=== PATIENT | male | born 1970 | race Caucasian/White ===

== ENCOUNTER 2018-05-21 04:22 | Emergency (ER) | payer OTHER ==
--- NOTE | 2018-05-21 04:39 | ED ---
HPI Chest Pain - HPI Summary HPI Summary: This patient is a 47 year old M brought in by ambulance to [facility] with a chief complaint of central chest pain radiating up through neck that began 2 days ago. The patient rates the pain 7/10 in severity. Symptoms aggravated by deep breaths. Symptoms alleviated by nothing. - History of Current Complaint Chief Complaint: EDChestPainROMI Time Seen by Provider: 05/21/18 04:27 Hx Obtained From: Patient Onset/Duration: Started Days Ago, Atraumatic, Still Present Timing: Constant Initial Severity: Moderate Current Severity: Moderate Pain Intensity: 7 Pain Scale Used: 0-10 Numeric Chest Pain Location: Mid Sternal Chest Pain Radiates: Yes Chest Pain Radiates To:: Neck Aggravating Factor(s): Deep Breaths Alleviating Factor(s): Nothing - Allergy/Home Medications Allergies/Adverse Reactions: Allergies Allergy/AdvReac Type Severity Reaction Status Date / Time Penicillins Allergy Anaphylatic Verified 05/21/18 04:30 Shock Chlorythromycin Allergy Anaphylatic Uncoded 05/21/18 04:30 Shock Home Medications: Home Medications Cymbalta CAP* 30 mg PO DAILY 05/21/18 [History Confirmed 05/21/18] Duloxetine HCl 20 mg PO DAILY 05/21/18 [History Confirmed 05/21/18] Folic Acid 1 mg PO DAILY 05/21/18 [History Confirmed 05/21/18] Insulin Aspart 1 - 8 units .ROUTE TID 05/21/18 [History Confirmed 05/21/18] Lantus(*) 52 units .ROUTE DAILY 05/21/18 [History Confirmed 05/21/18] Protonix 40 mg PO DAILY 05/21/18 [History Confirmed 05/21/18] Seroquel Xr 200 TAB* 200 mg PO DAILY 05/21/18 [History Confirmed 05/21/18] Sertraline* 50 mg PO DAILY 05/21/18 [History Confirmed 05/21/18] Thiamine TAB* 100 mg PO DAILY 05/21/18 [History Confirmed 05/21/18] Zofran 4 MG Tab* 4 mg PO DAILY PRN 05/21/18 [History Confirmed 05/21/18] metFORMIN* 1,000 mg PO DAILY 05/21/18 [History Confirmed 05/21/18] traZODone TAB* [Desyrel TAB*] 100 mg PO DAILY 05/21/18 [History Confirmed ] PMH/Surg Hx/FS Hx/Imm Hx Previously Healthy: No Endocrine/Hematology History: Reports: Hx Diabetes Cardiovascular History: Reports: Hx Congestive Heart Failure, Other Cardiovascular Problems/Disorders - Low ejection fraction GI History: Reports: Hx Gastroesophageal Reflux Disease Opthamlomology History: Denies: Hx Legally Blind EENT History: Denies: Hx Deafness - Cancer History Cancer Type, Location and Year: Renal Cell Carcinoma 2014 Infectious Disease History: No Infectious Disease History: Denies: Traveled Outside the [place] in Last 30 Days - Family History Known Family History: Positive: Cardiac Disease - Social History Alcohol Use: Rare Hx Substance Use: No Substance Use Type: Reports: None Hx Tobacco Use: Yes Smoking Status (MU): Former Smoker Review of Systems Negative: Fever Positive: Chest Pain All Other Systems Reviewed And Are Negative: Yes Physical Exam - Summary Physical Exam Summary: VITAL SIGNS: Reviewed. GENERAL: Patient is a well-developed and morbidly obese male who is lying comfortable in the stretcher. Patient is not in any acute respiratory distress. HEAD AND FACE: No signs of trauma. No ecchymosis, hematomas or skull depressions. No sinus tenderness. EYES: PERRLA, EOMI x 2, No injected conjunctiva, no nystagmus. EARS: Hearing grossly intact. Ear canals and tympanic membranes are within normal limits. MOUTH: Oropharynx within normal limits. NECK: Supple, trachea is midline, no adenopathy, no JVD, no carotid bruit, no c- spine tenderness, neck with full ROM. CHEST: Symmetric, no tenderness at palpation LUNGS: Decreased breath sounds bilaterally. No wheezing or crackles. CVS: Tachycardia, S1 and S2 present, no murmurs or gallops appreciated. ABDOMEN: Soft, non-tender. No signs of distention. No rebound no guarding, and no masses palpated. Bowel sounds are normal. EXTREMITIES: FROM in all major joints, no edema, no cyanosis or clubbing. NEURO: Alert and oriented x 3. No acute neurological deficits. Speech is normal and follows commands. SKIN: Dry and warm Triage Information Reviewed: Yes Vital Signs On Initial Exam: Initial Vitals Temp Pulse Resp BP Pulse Ox 98.6 F 108 18 88/75 98 05/21/18 04:26 05/21/18 04:26 05/21/18 04:26 05/21/18 04:26 05/21/18 04:26 Vital Signs Reviewed: Yes Diagnostics - Vital Signs Vital Signs Temp Pulse Resp BP Pulse Ox 05/21/18 04:26 98.6 F 108 18 88/75 98 - Laboratory Result Diagrams: 05/21/18 05:10 05/21/18 05:10 Lab Statement: Any lab studies that have been ordered have been reviewed, and results considered in the medical decision making process. - Radiology Chest XR Radiology Interpretation Completed By: ED Physician Summary of Radiographic Findings: CXR reveals, per ED physician, no acute process. - EKG 0423 Cardiac Rate: NL EKG Rhythm: Sinus Rhythm - 109 BPM Summary of EKG Findings: An EKG taken at 0423 reveals normal sinus rhythm at 109 BPM with low voltage and left axis deviation. Chest Pain Course/Dx - Course Course Of Treatment: This patient is a 47 year old M brought in by ambulance to [facility] with a chief complaint of central chest pain radiating up through neck that began 2 days ago. Physical Exam Findings: Morbidly obese. Tachycardic. Decreased breath sounds bilaterally. An EKG taken at 0423 reveals normal sinus rhythm at 109 BPM with low voltage and left axis deviation. CXR reveals, per ED physician, no acute process. Bloodwork obtained. In the ED course the patient was given aspirin, morphine, fluids, and Zofran. Consult with Dr. Rico ( hospitalist) at 0545. She agrees to admit the patient for further evaluation. The patient is agreeable with this plan. - Diagnoses Provider Diagnoses: Chest pain Discharge - Sign-Out/Discharge Documenting (check all that apply): Patient Departure - Admit to [facility] - Discharge Plan Condition: Stable Disposition: ADMITTED TO [facility] Referrals: No Primary Care Phys,NOPCP [Primary Care Provider] - - Billing Disposition and Condition Condition: STABLE Disposition: Admitted to [facility] - Attestation Statements Document Initiated by Tanikaibnevaeh: Yes Documenting Scribe: Adriana Quiroga Provider For Whom Eladia is Documenting (Include Credential): Dr. Ham Holguin MD Scribe Attestation: Adriana Reed scribed for Dr. Ham Holguin MD on 05/21/18 at 0558. Scribe Documentation Reviewed: Yes Provider Attestation: The documentation as recorded by the Sheryl blountily Day accurately reflects the service I personally performed and the decisions made by me, Dr. Ham Holguin MD Status of Scribnevaeh Document: Viewed
[2018-05-21] MEDS ORDERED: Morphine VIAL* 4 MG/ML VIAL (1 ml vial) IV ONE ×2 (04:40→06:15)
[2018-05-21] MEDS ORDERED: NS 0.9% 500 ML* 500 ML IV ONE ×2 (04:40→05:45)
[2018-05-21] MEDS ORDERED: Aspirin 81 mg CHEW TAB* 81 MG TAB.CHEW PO ONE (04:40)
[2018-05-21] MEDS ORDERED: Ondansetron INJ* 2 MG/ML VIAL IV ONE (04:41)
[2018-05-21 05:21] LABS: ABS Basophils 0 10^3/ul (0-0.2); ABS Eosinophils 0.1 10^3/ul (0-0.6); ABS Monocytes 0.9 10^3/ul (0-0.8); ABS Neutrophils 6.3 10^3/ul (1.5-7.7); ABS Nucleated RBC 0 10^3/ul; Eosinophil % 1.8 %; Hematocrit 41 % (42-52); Hemoglobin 13.4 g/dl (14.0-18.0); Mean Corpuscular HGB Conc 33 g/dl (31-36); Mean Corpuscular Hemoglobin 28 pg (27-31); Mean Corpuscular Volume 84 fL (80-94); Mean Platelet Volume 7.2 fL (7.4-10.4); Nucleated Red Blood Cells % 0; Platelet Count 244 10^3/ul (150-450); Red Blood Count 4.85 10^6/ul (4.00-5.40); Red Cell Distribution Width 15 % (10.5-15); White Blood Count 8.4 10^3/ul (3.5-10.8)
[2018-05-21 05:35] LABS: Activated Partial Thrombo Time 19.6 seconds (26.0-36.3); INR 0.93 (0.77-1.02)
[2018-05-21 05:39] LABS: Albumin 3.5 g/dL (3.2-5.2); Albumin/Globulin Ratio 1.1 (1-3); BUN/Creatinine Ratio 7.5 (8-20); Calcium 9.1 mg/dL (8.6-10.3); EGFR Non-African American 51.1 (>60); Globulin 3.2 g/dL (2-4); Magnesium 1.8 mg/dL (1.9-2.7); Potassium 3.6 mmol/L (3.5-5.0); Total Protein 6.7 g/dL (6.4-8.9)
[2018-05-21] MEDS ORDERED: Al Hydrox/Mg Hydrox/Simet LIQ* 30 ML UDC PO PRN (06:05)
--- NOTE | 2018-05-21 07:14 | PN ---
Subjective Date of Service: 05/21/18 Interval History: Addendum to H/P #1 05/21/18 47 yo M with PMH ETOH use d/o and dependence, PSA, currently in inpatient rehabilitation facility ([facility], brought here by ambulance from there), depression and anxiety, hx of NICM with distant depressed EF though currently last echo normal EF with trivial tricuspid pathology (04/2018), hx of peridcarditis dx by outpt [employer] in Jan (cardiac w/u as below), distant hx of RCC s/p R nephrectomy c/b abdominal hernia and subsequent abdominal hernia repair surgery, PUD and GIB, CKD II who presented to the ER from [place] for chest pain as described in H/P. Records accessed from [facility] show recent cardiology consult 05/14/18 for the same and the following workup: CTA Ne05/01/18 and 2 subsequent neg CTA in 03/2018 Cath 03/2018: Insig CAD Echo 04/2018: Chronic trivial pericardial effusion NM Stress in 03/2018: Old ischemia, triggered cath above In the ER here at [facility], labs show Cr at baseline ESR 27, Trops neg, EKG with isolated STD in V5, compared to 05/14/18 this is new, though of unclear sig I visited with the pt, on repeat history his CP has been chronic and ongoing and not really changed since Mar 2018. He did have a trial of prednisone in Jan which he thought was mildly helpful. We discuss in the setting of such an extensive cardiac workup and no e/o active pericarditis with a low ESR and unremarkable EKG that residual inflammation may be responsible for his pain and that we could certainly trial him on low dose prednisone which he is amenable to. I called and discussed his case with Keturah, the charge nurse and [facility] and they are comfortable ([phone]) managing his sliding scale insulin. Objective Active Medications: Al Hydrox/Mg Hydrox/Simethicone (Maalox Plus*) 30 ml PO Q6H PRN PRN Reason: INDIGESTION Heparin Sodium (Porcine) (Heparin Vial(*)) 5,000 units SUBCUT Q8HR ODALIS Vital Signs - 8 hr 05/21/18 05/21/18 05/21/18 04:26 05:20 05:25 Temperature 98.6 F Pulse Rate 108 89 Respiratory 18 18 15 Rate Blood Pressure 88/75 77/63 (mmHg) O2 Sat by Pulse 98 97 Oximetry 05/21/18 05/21/18 05/21/18 05:29 05:33 05:55 Temperature Pulse Rate 88 97 80 Respiratory 12 12 12 Rate Blood Pressure 92/61 97/63 (mmHg) O2 Sat by Pulse 98 96 Oximetry 05/21/18 05/21/18 05/21/18 06:00 06:19 06:25 Temperature Pulse Rate 83 76 Respiratory 13 18 8 Rate Blood Pressure 102/70 (mmHg) O2 Sat by Pulse 98 96 Oximetry 05/21/18 06:44 Temperature 98.6 F Pulse Rate 80 Respiratory 18 Rate Blood Pressure 102/70 (mmHg) O2 Sat by Pulse 98 Oximetry Oxygen Devices in Use Now: None Eyes: No Scleral Icterus, PERRLA Ears/Nose/Mouth/Throat: - - Fair dentition Neck: NL Appearance and Movements; NL JVP Respiratory: Symmetrical Chest Expansion and Respiratory Effort Cardiovascular: NL Sounds; No Murmurs; No JVD, - - Port at R chest wall Abdominal: NL Sounds; No Tenderness; No Distention Lymphatic: No Cervical Adenopathy Extremities: No Edema Skin: No Rash or Ulcers Neurological: Alert and Oriented x 3 Result Diagrams: 05/21/18 05:10 05/21/18 05:10 EKG Data: As per HPI Assess/Plan/Problems-Billing Assessment: As per HPI this 48 yo M with above PMH who is presenting for continue atypical CP. He has had extensive cardiac workup and his troponins, ESR, and EKG do not suggest active ischemia or pericarditis. His pain may be inflammation based from a sub acute hx of pericarditis in the absence of an acute flare. His catheterization, CTA, echo, and stress test done from outside are reassuring. He is medically stable for d/c and this is discussed with [facility] and the patient - Patient Problems (1) Chest pain, atypical Current Visit: Yes Status: Chronic Code(s): R07.89 - OTHER CHEST PAIN SNOMED Code(s): 656960320 Comment: Atypical chest pain as above. He is stable for d/c on his home medications with addition of prednisone 40mg x 3 days followed by 20mg x 3 days then stop. He may stop prednisone if he does not find it helpful. He will need adjustment of his insulin likely as a repsonse to prednisone and the charge nurse is aware of this -D/C to [facility] -Outpt rx of Prednisone 40mg x 3 days, 20mg x 3 days then stop -Resume home medications
[2018-05-21 07:16] LABS: Erythrocyte Sed Rate 27 mm/Hr (0-14)
[2018-05-21] MEDS ORDERED: predniSONE TAB* 20 MG PO SCH (08:00)
--- NOTE | 2018-05-21 08:22 | ED ---
Progress - Progress Note Progress Note: After Dr Salas consulted on the patient she suggested discharging the patient. She states the patient had full cardiac workup on the 7th of this month at [facility] and there is nothing we could offer him further. The patient was not signed out to me and I was not involved in the care of this patient. Patient will be discharged. Course/Dx - Course Course Of Treatment: After Dr Salas consulted on the patient she suggested discharging the patient. She states the patient had full cardiac workup on the 7th of this month at [facility] and there is nothing we could offer him further. The patient was not signed out to me and I was not involved in the care of this patient. Patient will be discharged. - Diagnoses Provider Diagnoses: Atypical chest pain Discharge - Sign-Out/Discharge Documenting (check all that apply): Patient Departure - Discharge Plan Condition: Stable Disposition: ADMITTED TO [facility] Prescriptions: predniSONE TAB* [Deltasone 20 MG TAB*] 20 mg PO DAILY #12 tab Referrals: No Primary Care Phys,NOPCP [Primary Care Provider] - - Attestation Statements Document Initiated by Scribe: Yes Documenting Scribe: Graham Boyle Provider For Whom Scribe is Documenting (Include Credential): Jeff Chadwick MD Scribe Attestation: I, Graham Boyle , scribed for Jeff Chadwick MD on 05/21/18 at 0819. Status of Scribe Document: Ready
[2018-05-21 08:43] VITALS: BP 100/68
--- NOTE | 2018-05-21 09:18 | HP ---
HISTORY AND PHYSICAL: DATE OF ADMISSION: 05/21/18 - EMERGENCY DEPT. TIME OF ADMISSION: 6:30 a.m. PRIMARY CARE PHYSICIAN: Dr. Alberts at [facility]. CHIEF COMPLAINT: Chest pain. HISTORY OF PRESENT ILLNESS: This is a 47-year-old man who is currently in alcohol rehab at [facility] who presents to the emergency department with chest pain since Monday night. He reports the chest pain began while he was resting in bed. It is located in the middle of his chest without radiation. He says he went to [facility] Monday night where they performed blood work, but did no other test and discharged him back to [facility]. Since then, his pain has continued, but he has mostly stayed in bed. He has not noticed that the pain worsened with exertion or changed with rest. He reports that he was diagnosed with pericarditis in January 2018 and this feels just like that. He states the pain gets worse with deep inspiration and worse with lying flat and is relieved with leaning forward. It has been constant and since it was not resolving today, he requested to come to the emergency department. Pertinent medical history that he reports, though I have no records of, includes recent pericarditis last fall, congestive heart failure with an ejection fraction of 25%; for which he wore a LifeVest, COPD, renal cell carcinoma; status post nephrectomy, and type 2 diabetes. PAST MEDICAL HISTORY: 1. Type 2 diabetes, on insulin. 2. Iron deficiency anemia. 3. COPD/asthma. 4. Fifteen abdominal surgeries for incisional hernia repairs and cholecystectomy. 5. RCC, status post nephrectomy. 6. Congestive heart failure with an EF of 25%, unknown etiology. 7. Pericarditis diagnosed in January 2018, for which he was placed on colchicine and prednisone. SOCIAL HISTORY: He permanently lives in [place], but is currently at inpatient rehab at [facility]. He quit smoking 5 years ago. He has been sober since 04/30/18. His emergency contact is his , Melissa. REVIEW OF SYSTEMS: He denies cough, shortness of breath, orthopnea, fevers, weight gain, or weight loss. Remainder of the 14-point review of systems is negative, except for as in the HPI. PHYSICAL EXAMINATION GENERAL: Alert, well-appearing man, in no distress. He is breathing comfortably and is able to speak in full sentences. VITAL SIGNS: Temperature 98.6, heart rate 80, respiratory rate 18, pulse ox 98 % on room air, blood pressure 102/70. HEENT: Pupils 3 mm bilaterally and reactive to light. Oral mucosa is moist. NECK: No JVP. No cervical adenopathy. LUNGS: Clear bilaterally. CHEST: He has a port on his right chest wall. He is in a regular rate and rhythm with no murmurs or rubs. ABDOMEN: Soft, nontender, nondistended. His liver is nonpalpable. He has no CVA tenderness. EXTREMITIES: No edema. No rashes. No ulcers. NEUROLOGIC: He is oriented x3. His strength is 5/5 throughout. DIAGNOSTIC STUDIES/LAB DATA: Labs: Sodium 135, potassium 3.6, chloride 101, creatinine 1.47, glucose 150, lactic acid 1.3, magnesium 1.8. Troponin 0.00. INR 0.93. D dimer is less than 200. White blood cell 8.4, hemoglobin 13.4, platelets 244. Chest x-ray: No infiltrates or effusion. Heart has a normal size, no vascular congestion. EKG: Sinus tachycardia with left axis deviation, isolated ST depressions in V5. No other ST or T-wave changes. ASSESSMENT AND PLAN: This is a 47-year-old man with reported extensive past medical history who presents to the emergency department with chest pain for 3 days. 1. Chest pain. He reports this is similar to pericarditis in the past. I have added on an ESR, which is pending. His initial troponin is negative and his EKG does not suggest ischemia nor pericarditis. He reports he has been to multiple hospitals over the past few months for similar complaints. It will be helpful if we can get records from [facility], and [place] where he reports he has had admissions and we will attempt to do so today. In the meantime, I will trend his troponins and monitor him on telemetry and await an ESR. At that point, a stress echo may be warranted pending the rest of the investigation. 2. Chronic kidney disease, likely related to nephrectomy. I have no baseline creatinine to compare this to, but he appears euvolemic on my exam. 3. Type 2 diabetes. He needs a medication reconciliation today. 4. Iron deficiency anemia. His hemoglobin is stable at 13.4 today. 5. DVT prophylaxis. Subcutaneous heparin. 6. Diet. N.p.o. for possible stress test. [id number]/[facility] #: [id number] ERVIN
--- NOTE | 2018-05-21 10:50 | PN ---
Progress Note - Progress Note Date of Service: 05/21/18 Note: Final xray read per radiology shows COPD. No change in treatment noted.
[2018-05-21] MEDS ORDERED: Heparin VIAL(*) 5000 UNITS/ML VIAL (FIVE THOUSAND) SUBCUT SCH (14:00)
== END 2018-05-21 08:45 | disposition short-term general hospital (02) ==
LOC: ED 04:22 → MEDTELE 06:00 → UNDOADMOB 06:00 → ED 08:45
DX: R07.89 Other chest pain (principal); J44.9 Chronic obstructive pulmonary disease, unspecified; E11.9 Type 2 diabetes mellitus without complications; Z79.84 Long term (current) use of oral hypoglycemic drugs; Z79.4 Long term (current) use of insulin; K21.9 Gastro-esophageal reflux disease without esophagitis; Z88.1 Allergy status to other antibiotic agents; Z88.0 Allergy status to penicillin; Z82.49 Family history of ischemic heart disease and other diseases of the circulatory system; Z87.891 Personal history of nicotine dependence; R00.0 Tachycardia, unspecified
CPT/HCPCS: 36415; 71045; 80053; 83605; 83735; 83880; 84484; 85025; 85379; 85610; 85652; 85730; 93005; 96361; 96374; 96375; 99285; A9270-GY; J1642; J2270; J2405; J7512

== ENCOUNTER 2018-06-19 02:30 | Emergency (ER) | payer OTHER ==
[2018-06-19] MEDS ORDERED: Metoclopramide IV* 5 MG/ML 2 ML VIAL IV SLOW PU ONE (03:25)
[2018-06-19] MEDS ORDERED: NS 0.9% 1000 ML** 1,000 ML IV ONE (03:25)
--- NOTE | 2018-06-19 03:25 | ED ---
GI/ HPI - HPI Summary HPI Summary: Patient is a 47 y/o M presenting to ED with complaints of hematemesis, abdominal pain. He states that abdominal pain onset at 1000 yesterday, vomited 2100 yesterday. Per triage, "Patient brought by ambulance from [facility]. Patient reports thowing up about a cup of blood at the center". He denies diarrhea, fever, reports no change in bowel movements, claims last bowel movement was productive of brown stool. PMHx of GI bleed from stomach and colon. He states that he had polyps in colon, ulcers in stomach. Hx of alcoholism, he denies Hx of liver problems due to alc. He notes that he drank for 20 years, states he quit two months ago. PMHx of pericarditis and diabetes. On triage, pain is rated 8/10, nothing is noted to aggravate/alleviate Sx. Home medications and allergies are reviewed. - History of Current Complaint Chief Complaint: EDAbdPain Time Seen by Provider: 06/19/18 03:15 Stated Complaint: ABD PAIN Hx Obtained From: Patient Onset/Duration: Started Hours Ago - He states that abdominal pain onset at 1000 yesterday, vomited 2100 yesterday., Still Present Timing: Constant, Lasting Hours - He states that abdominal pain onset at 1000 yesterday, vomited 2100 yesterday. Current Severity: Severe - 8/10 Pain Intensity: 8 Associated Signs and Symptoms: Positive: Hematemesis, Abdominal Pain. Negative : Diarrhea, Fever Aggravating Factor(s): Nothing Alleviating Factor(s): Nothing - Allergy/Home Medications Allergies/Adverse Reactions: Allergies Allergy/AdvReac Type Severity Reaction Status Date / Time Adhesive Tape Allergy Unknown Verified 06/19/18 05:00 [Tegaderm Dressing] Reaction Details clarithromycin Allergy Anaphylatic Verified 05/21/18 06:17 Shock NSAIDS (Non-Steroidal Allergy Unknown Verified 06/19/18 05:00 Anti-Inflamma Reaction Details Penicillins Allergy Anaphylatic Verified 05/21/18 04:30 Shock Home Medications: Home Medications Acetaminophen [APAP] 650 mg PO Q6H PRN 06/19/18 [History Confirmed 06/19/18] Atorvastatin* [Lipitor*] 20 mg PO QPM 06/19/18 [History Confirmed 06/19/18] Metoclopramide TAB* [Reglan TAB*] 5 mg PO Q6H PRN 06/19/18 [History Confirmed ] Multivitamin [Multivitamins] 1 each PO DAILY 06/19/18 [History Confirmed ] Naltrexone TAB* 50 mg PO BEDTIME 06/19/18 [History Confirmed 06/19/18] PMH/Surg Hx/FS Hx/Imm Hx Endocrine/Hematology History: Reports: Hx Diabetes Cardiovascular History: Reports: Hx Congestive Heart Failure, Other Cardiovascular Problems/Disorders - Low ejection fraction GI History: Reports: Hx Gastroesophageal Reflux Disease, Hx Gastrointestinal Bleed Sensory History: Denies: Hx Legally Blind, Hx Deafness Opthamlomology History: Denies: Hx Legally Blind - Cancer History Cancer Type, Location and Year: Renal Cell Carcinoma 2013 Infectious Disease History: No Infectious Disease History: Denies: Traveled Outside the [place] in Last 30 Days - Family History Known Family History: Positive: Cardiac Disease - Social History Alcohol Use: None Alcohol Amount: 05/17/2018 treatment Hx Substance Use: No Substance Use Type: Reports: None Hx Tobacco Use: Yes Smoking Status (MU): Former Smoker Review of Systems Negative: Fever Positive: Abdominal Pain, Vomiting - hematemesis. Negative: Diarrhea All Other Systems Reviewed And Are Negative: Yes Physical Exam - Summary Physical Exam Summary: VITAL SIGNS: Reviewed. GENERAL: Patient is a well-developed and morbidly obese male who is lying comfortable in the stretcher. Patient is not in any acute respiratory distress. HEAD AND FACE: No signs of trauma. No ecchymosis, hematomas or skull depressions. No sinus tenderness. EYES: PERRLA, EOMI x 2, No injected conjunctiva, no nystagmus. EARS: Hearing grossly intact. Ear canals and tympanic membranes are within normal limits. MOUTH: Oropharynx within normal limits. NECK: Supple, trachea is midline, no adenopathy, no JVD, no carotid bruit, no c- spine tenderness, neck with full ROM. CHEST: Symmetric, no tenderness at palpation LUNGS: Clear to auscultation bilaterally. No wheezing or crackles. CVS: Regular rate and rhythm, S1 and S2 present, no murmurs or gallops appreciated. ABDOMEN: Soft, diffuse tenderness. No signs of distention. No rebound no guarding, and no masses palpated. Bowel sounds are normal. RECTAL EXAM: Brown stool is noted, sample sent for occult blood test. EXTREMITIES: FROM in all major joints, no edema, no cyanosis or clubbing. NEURO: Alert and oriented x 3. No acute neurological deficits. Speech is normal and follows commands. SKIN: Dry and warm Triage Information Reviewed: Yes Vital Signs On Initial Exam: Initial Vitals Temp Pulse Resp BP Pulse Ox 97.8 F 82 20 103/64 98 06/19/18 02:30 06/19/18 02:30 06/19/18 02:30 06/19/18 02:30 06/19/18 02:30 Vital Signs Reviewed: Yes Diagnostics - Vital Signs Vital Signs Temp Pulse Resp BP Pulse Ox 06/19/18 02:30 97.8 F 82 20 103/64 98 - Laboratory Result Diagrams: 06/19/18 03:44 06/19/18 03:44 Lab Statement: Any lab studies that have been ordered have been reviewed, and results considered in the medical decision making process. - CT ABD/PEL CT CT Interpretation Completed By: Radiologist Summary of CT Findings: ABD/PEL CT IMPRESSION: There is a trace pericardial effusion noted. No evidence of acute. intra-abdominal pathology. THIS REPORT WAS REVIEWED BY ED PHYSICIAN. GIGU Course/Dx - Course Course Of Treatment: Patient is a 47 y/o M presenting to ED with complaints of hematemesis, abdominal pain. He states that abdominal pain onset at 1000 yesterday, vomited 2100 yesterday. Per triage, "Patient brought by ambulance from [facility]. Patient reports thowing up about a cup of blood at the center". He denies diarrhea, fever, reports no change in bowel movements, claims last bowel movement was productive of brown stool. PMHx of GI bleed from stomach and colon. He states that he had polyps in colon, ulcers in stomach. Hx of alcoholism, he denies Hx of liver problems due to alc. He notes that he drank for 20 years, states he quit two months ago. PMHx of pericarditis and diabetes. On physical exam, patient is noted to be morbidly obese, abdomen is tender diffusely, rectal exam showed brown stool, sample sent for occult blood test. During ED course, patient received fluids, protonix 80 mg IV ED ONCE, reglan 10 mg IV SLOW PU ONCE, and protonix IV bag 80 mg in 250 mls/hr IVPB Q10H ODALIS 1 mg/hr. Labs showed Hgb 12.9, Hct 39, absolute monos 0.9, creatinine 1.44, glucose 103, magnesium 1.8. UA was positive for urobilinogen. Stool occult blood was negative. ABD/PEL CT IMPRESSION: There is a trace pericardial effusion noted. No evidence of acute. intra-abdominal pathology. Patient was discharged to home and instructed to follow up with PCP. - Diagnoses Provider Diagnoses: Gastritis Discharge - Sign-Out/Discharge Documenting (check all that apply): Patient Departure - DISCHARGE Patient Received Moderate/Deep Sedation with Procedure: No - NO PROCEDURES DONE - Discharge Plan Condition: Stable Disposition: HOME Prescriptions: Metoclopramide TAB* [Reglan TAB*] 10 mg PO Q6H PRN #20 tab PRN Reason: Nausea/Vomiting Pantoprazole TAB * [Protonix TAB*] 40 mg PO DAILY #30 tab Patient Education Materials: Gastritis (ED) Referrals: [facility] [Outside] - 2 Days Additional Instructions: RETURN TO EMERGENCY DEPARTMENT FOR ANY NEW OR WORSENING SYMPTOMS. FOLLOW UP WITH PRIMARY CARE PHYSICIAN IN 1-2 DAYS. - Attestation Statements Document Initiated by Tanikaibe: Yes Documenting Scribe: CARIE SNOWDEN Provider For Whom Eladia is Documenting (Include Credential): JOSÉ MIGUEL BRADLEY MD Scribe Attestation: I, CARIE SNOWDEN , scribed for JOSÉ MIGUEL BRADLEY MD on 06/19/18 at 0639. Status of Scribe Document: Ready
[2018-06-19] MEDS ORDERED: Pantoprazole IV* 40 MG IV ONE (03:26)
[2018-06-19 03:51] LABS: ABS Basophils 0 10^3/ul (0-0.2); ABS Eosinophils 0.1 10^3/ul (0-0.6); ABS Lymphocytes 1.1 10^3/ul (1.0-4.8); ABS Monocytes 0.9 10^3/ul (0-0.8); ABS Neutrophils 5.1 10^3/ul (1.5-7.7); ABS Nucleated RBC 0 10^3/ul; Eosinophil % 1.7 %; Hematocrit 39 % (42-52); Hemoglobin 12.9 g/dl (14.0-18.0); Lymphocyte % 14.5 %; Mean Corpuscular HGB Conc 33 g/dl (31-36); Mean Corpuscular Hemoglobin 27 pg (27-31); Mean Corpuscular Volume 81 fL (80-94); Mean Platelet Volume 7.5 fL (7.4-10.4); Nucleated Red Blood Cells % 0; Platelet Count 209 10^3/ul (150-450); Red Cell Distribution Width 14 % (10.5-15); White Blood Count 7.2 10^3/ul (3.5-10.8)
[2018-06-19 04:00] LABS: Activated Partial Thrombo Time 35.8 seconds (26.0-36.3); INR 0.9 (0.77-1.02)
[2018-06-19] MEDS ORDERED: Pantoprazole* 80 mg IN NS 80 MG/250 ML BAG IVPB SCH (04:00)
[2018-06-19 04:08] LABS: Albumin 3.8 g/dL (3.2-5.2); Albumin/Globulin Ratio 1.4 (1-3); BUN/Creatinine Ratio 10.4 (8-20); C Reactive Protein 6.91 mg/L (<8.01); Calcium 9.6 mg/dL (8.6-10.3); EGFR African American 63.4 (>60); EGFR Non-African American 52.4 (>60); Globulin 2.8 g/dL (2-4); Magnesium 1.8 mg/dL (1.9-2.7); Total Bilirubin 0.7 mg/dL (0.2-1.0); Total Protein 6.6 g/dL (6.4-8.9)
[2018-06-19] MEDS ORDERED: Iodixanol* (CONTRAST) 320 MG/ML 100 ML SDV IV ONE (04:13)
[2018-06-19 05:18] LABS: Urine Appearance Clear; Urine Bilirubin Negative (Negative); Urine Blood Negative (Negative); Urine Color Yellow; Urine Glucose Negative (Negative); Urine Ketones Negative (Negative); Urine Nitrite Negative (Negative); Urine Protein Negative (Negative); Urine Specific Gravity 1.024 (1.010-1.030); Urine Urobilinogen Positive (Negative)
[2018-06-19 07:48] VITALS: BP 112/79
== END 2018-06-19 07:31 | disposition home or self-care (01) ==
LOC: ED 02:30
DX: K29.70 Gastritis, unspecified, without bleeding (principal); R10.9 Unspecified abdominal pain; K92.0 Hematemesis; E11.9 Type 2 diabetes mellitus without complications; I50.9 Heart failure, unspecified; K21.9 Gastro-esophageal reflux disease without esophagitis; Z88.0 Allergy status to penicillin; Z87.891 Personal history of nicotine dependence
CPT/HCPCS: 36415; 74177; 80053; 81003; 82150; 82272; 83690; 83735; 85025; 85610; 85730; 86140; 96361; 96374; 96375; 99284; J1642; J2765; Q9967

== ENCOUNTER 2020-03-19 16:15 | Observation (INO) ==
[2020-03-19 17:37] LABS: ABS Eosinophils 0.1 10^3/ul (0-0.6); ABS Lymphocytes 1.2 10^3/ul (1.0-4.8); ABS Monocytes 0.4 10^3/ul (0-0.8); ABS Neutrophils 5.6 10^3/ul (1.5-7.7); Eosinophil % 1.5 %; Hematocrit 38 % (42-52); Hemoglobin 12.6 g/dL (14.0-18.0); Mean Corpuscular HGB Conc 33 g/dL (31-36); Mean Corpuscular Hemoglobin 26 pg (27-31); Mean Corpuscular Volume 79 fL (80-94); Mean Platelet Volume 7.1 fL (7.4-10.4); Platelet Count 165 10^3/uL (150-450); Red Blood Count 4.83 10^6 /uL (4.18-5.48); Red Cell Distribution Width 17 % (10-15); White Blood Count 7.3 10^3/uL (3.5-10.8)
[2020-03-19 17:41] LABS: Activated Partial Thrombo Time 18.8 seconds (26.0-38.0); INR 0.93 (0.82-1.09)
[2020-03-19 17:50] LABS: ALT 61 U/L (7-52); AST 30 U/L (13-39); Albumin 3.7 g/dL (3.2-5.2); Albumin/Globulin Ratio 1.3 (1-3); Alkaline Phosphatase 115 U/L (34-104); Anion Gap 4 mmol/L (2-11); BUN/Creatinine Ratio 14.2 (8-20); Blood Urea Nitrogen 17 mg/dL (6-24); CO2 Carbon Dioxide 27 mmol/L (22-32); CRP High Sensitivity 10.74 mg/L (<2.00); Calcium 8.4 mg/dL (8.6-10.3); Chloride 104 mmol/L (101-111); EGFR African American 77.5 (>60); EGFR Non-African American 64.1 (>60); Globulin 2.8 g/dL (2-4); Glucose 197 mg/dL (70-100); Potassium 4.4 mmol/L (3.5-5.0); Sodium 135 mmol/L (135-145); Total Protein 6.5 g/dL (6.4-8.9)
[2020-03-19 19:37] LABS: Erythrocyte Sed Rate 11 mm/Hr (0-19)
[2020-03-19] MEDS ORDERED: Ondansetron 4 mg VIAL 2 MG/ML 2 ml VIAL IV PRN (20:53)
[2020-03-19] MEDS ORDERED: Dextrose 50% Syringe 50 ml 25 GM/50 ML SYRINGE IV PUSH PRN (21:08)
[2020-03-19] MEDS ORDERED: Heparin 5000 UNITS/ML 1 mL VIAL SUBCUT SCH (22:00)
[2020-03-19 22:43] LABS: % Iron Saturation 9 % (15-55); Iron 32 ug/dL (50-212); Total Iron Binding Capacity 364 mcg/dL (250-450); Transferrin 260 mg/dL (203-362); Unsaturated Iron Binding < 349 ug/dL
[2020-03-19 23:03] LABS: Ferritin 11.4 ng/mL (24-336)
[2020-03-20 02:46] LABS: Urine Appearance Clear; Urine Bilirubin Negative (Negative); Urine Blood Negative (Negative); Urine Color Yellow; Urine Glucose 2+(150 mg/dL) (Negative); Urine Ketones Negative (Negative); Urine Nitrite Negative (Negative); Urine Protein Negative (Negative); Urine Specific Gravity 1.025 (1.010-1.030); Urine Urobilinogen Negative (Negative)
[2020-03-20 06:33] LABS: C Reactive Protein 32.01 mg/L (<8.01); HDL Cholesterol 33.5 mg/dL
[2020-03-20] MEDS ORDERED: Perflutren Lipid Microsphere 3 ML VIAL ONE (08:08)
[2020-03-20] MEDS ORDERED: Insulin GLARGINE 100 un/ml 10 ml VIAL SUBCUT SCH ×2 (09:00)
[2020-03-20] MEDS: CMCS: FluvoxaMINE 50 mg TAB (NF) PO SCH (09:04)
[2020-03-20] MEDS ORDERED: Regadenoson 0.4 MG/5 ML SYRINGE ONE ×2 (11:23→14:46)
[2020-03-20] MEDS ORDERED: Aminophylline 25 MG/ML VIAL ONE (11:23)
[2020-03-20] MEDS ORDERED: Lorazepam PYXIS KEY ONE (11:25)
[2020-03-20] MEDS ORDERED: LORazepam 2 mg VIAL 1 ml ONE (11:26)
[2020-03-20] MEDS ORDERED: Al Hydrox/Mg Hydrox/Simet LIQ 30 ML UDC PO PRN (13:03)
[2020-03-20 14:42] LABS: Albumin 3.4 g/dL (3.2-5.2); Albumin/Globulin Ratio 1.3 (1-3); BUN/Creatinine Ratio 13.6 (8-20); Calcium 8.3 mg/dL (8.6-10.3); EGFR Non-African American 61.1 (>60); Globulin 2.7 g/dL (2-4); Potassium 4.3 mmol/L (3.5-5.0); Total Bilirubin 0.6 mg/dL (0.2-1.0); Total Protein 6.1 g/dL (6.4-8.9)
[2020-03-21 05:37] LABS: Hematocrit 38 % (42-52); Hemoglobin 12.3 g/dL (14.0-18.0); Mean Corpuscular HGB Conc 33 g/dL (31-36); Mean Corpuscular Hemoglobin 26 pg (27-31); Mean Corpuscular Volume 79 fL (80-94); Mean Platelet Volume 7.3 fL (7.4-10.4); Platelet Count 177 10^3/uL (150-450); Red Blood Count 4.81 10^6 /uL (4.18-5.48); Red Cell Distribution Width 16 % (10-15); White Blood Count 7.5 10^3/uL (3.5-10.8)
[2020-03-21 05:53] LABS: Calcium 6.9 mg/dL (8.6-10.3); EGFR African American 102.8 (>60); EGFR Non-African American 84.9 (>60); Magnesium 1.6 mg/dL (1.9-2.7); Potassium 3.8 mmol/L (3.5-5.0)
[2020-03-21 06:52] LABS: ABS Lymphocytes 0.6 10^3/ul (1.0-4.8); ABS Monocytes 0.6 10^3/ul (0-0.8); ABS Neutrophils 6.3 10^3/ul (1.5-7.7); Lymphocyte % 7.4 %
[2020-03-21] MEDS ORDERED: Magnesium Sulfate 2 gm BAG 2 GM/50 ML BAG IVPB ONE (08:15)
[2020-03-21] MEDS: CMCS: FluvoxaMINE 50 mg TAB (NF) PO SCH (08:54)
[2020-03-21] MEDS ORDERED: Insulin GLARGINE 100 un/ml 10 ml VIAL SUBCUT SCH (09:00)
[2020-03-21 12:57] VITALS: BP 120/75
== END 2020-03-21 14:33 ==
LOC: MEDTELE 16:15 → ED 16:15 → MEDTELE 21:53
PROVIDERS: ADMIT Student in an Organized Health Care Education/Training Program; ATTEND Internal Medicine

== ENCOUNTER 2020-04-08 13:11 | Inpatient (IN) ==
[2020-04-08] MEDS ORDERED: Pantoprazole 80 mg in NS BAG 80 MG/250 ML BAG IV ONE (13:27)
[2020-04-08] MEDS ORDERED: Ondansetron 4 mg VIAL 2 MG/ML 2 ml VIAL IV ONE (13:27)
[2020-04-08] MEDS ORDERED: NS 0.9% 1000 ml BAG 1,000 ML IV ONE (13:27)
[2020-04-08] MEDS ORDERED: Pantoprazole VIAL 40 MG VIAL IV ONE (13:29)
[2020-04-08 14:02] LABS: ABS Eosinophils 0.1 10^3/ul (0-0.6); ABS Monocytes 0.8 10^3/ul (0-0.8); ABS Neutrophils 5.9 10^3/ul (1.5-7.7); Eosinophil % 1.6 %; Hematocrit 38 % (42-52); Hemoglobin 12.3 g/dL (14.0-18.0); Lymphocyte % 13.1 %; Mean Corpuscular HGB Conc 33 g/dL (31-36); Mean Corpuscular Hemoglobin 26 pg (27-31); Mean Corpuscular Volume 79 fL (80-94); Mean Platelet Volume 7.4 fL (7.4-10.4); Platelet Count 203 10^3/uL (150-450); Red Blood Count 4.79 10^6 /uL (4.18-5.48); Red Cell Distribution Width 16 % (10-15); White Blood Count 7.8 10^3/uL (3.5-10.8)
[2020-04-08 14:23] LABS: Activated Partial Thrombo Time 29.8 seconds (26.0-38.0); INR 0.99 (0.82-1.09)
[2020-04-08 14:24] LABS: ALT 42 U/L (7-52); AST 24 U/L (13-39); Albumin 3.6 g/dL (3.2-5.2); Albumin/Globulin Ratio 1.2 (1-3); Alkaline Phosphatase 127 U/L (34-104); Anion Gap 3 mmol/L (2-11); BUN/Creatinine Ratio 18.7 (8-20); Blood Urea Nitrogen 23 mg/dL (6-24); CO2 Carbon Dioxide 29 mmol/L (22-32); Calcium 8.6 mg/dL (8.6-10.3); Chloride 103 mmol/L (101-111); EGFR African American 75.4 (>60); EGFR Non-African American 62.3 (>60); Globulin 2.9 g/dL (2-4); Glucose 237 mg/dL (70-100); Lipase 51 U/L (11.0-82.0); Potassium 4.3 mmol/L (3.5-5.0); Sodium 135 mmol/L (135-145); Total Protein 6.5 g/dL (6.4-8.9)
[2020-04-08] MEDS ORDERED: Morphine 4 MG/ML VIAL (1 ml) IV ONE (15:41)
[2020-04-08] MEDS ORDERED: Ondansetron 4 mg VIAL 2 MG/ML 2 ml VIAL IV PRN (17:05)
[2020-04-08] MEDS ORDERED: Al Hydrox/Mg Hydrox/Simet LIQ 30 ML UDC PO PRN (17:05)
[2020-04-08] MEDS ORDERED: Dextrose 50% Syringe 50 ml 25 GM/50 ML SYRINGE IV PUSH PRN (17:08)
[2020-04-08 17:59] LABS: C Reactive Protein 10.69 mg/L (<8.01)
[2020-04-08 18:50] LABS: % Iron Saturation 13 % (15-55); Iron 47 ug/dL (50-212); Total Iron Binding Capacity 370 mcg/dL (250-450); Transferrin 264 mg/dL (203-362); Unsaturated Iron Binding < 355 ug/dL
[2020-04-08 19:04] LABS: Ferritin 12.3 ng/mL (24-336)
[2020-04-08 19:18] LABS: Erythrocyte Sed Rate 15 mm/Hr (0-19)
[2020-04-08] MEDS ORDERED: Morphine 2 MG/ML SYRINGE IV ONE (19:45)
[2020-04-08] MEDS: CMCS:FluvoxaMINE 50 mg TAB (NF) PO SCH (20:11)
[2020-04-09] MEDS: Morphine 2 MG/ML SYRINGE IV PRN ×2 (00:08→10:25)
[2020-04-09 00:44] LABS: Hematocrit 34 % (42-52); Hemoglobin 11.3 g/dL (14.0-18.0)
[2020-04-09] MEDS: NS 0.9% 1000 ml BAG 1,000 ML IV SCH ×3 (05:21→23:40)
[2020-04-09 07:11] LABS: ABS Eosinophils 0.1 10^3/ul (0-0.6); ABS Lymphocytes 0.9 10^3/ul (1.0-4.8); ABS Monocytes 0.8 10^3/ul (0-0.8); Eosinophil % 1.5 %; Hematocrit 37 % (42-52); Lymphocyte % 11.6 %; Mean Corpuscular HGB Conc 33 g/dL (31-36); Mean Corpuscular Hemoglobin 26 pg (27-31); Mean Corpuscular Volume 79 fL (80-94); Mean Platelet Volume 7.4 fL (7.4-10.4); Platelet Count 193 10^3/uL (150-450); Red Blood Count 4.68 10^6 /uL (4.18-5.48); Red Cell Distribution Width 16 % (10-15); White Blood Count 7.8 10^3/uL (3.5-10.8)
[2020-04-09 07:33] LABS: BUN/Creatinine Ratio 13.3 (8-20); Calcium 8.1 mg/dL (8.6-10.3); EGFR African American 90.5 (>60); EGFR Non-African American 74.8 (>60); Magnesium 1.8 mg/dL (1.9-2.7); Potassium 3.9 mmol/L (3.5-5.0)
[2020-04-09] MEDS ORDERED: Magnesium Sulfate IV 1GM/100ML 1 GM/100 ML BAG IV ONE (08:25)
[2020-04-09] MEDS: Insulin GLARGINE 100 un/ml 10 ml VIAL SUBCUT SCH (10:20)
[2020-04-09] MEDS: Pantoprazole VIAL 40 MG VIAL IV SCH (10:21)
[2020-04-09] MEDS: fentaNYL 100 mcg/2 ml 50 MCG/ML VIAL IV SLOW PU PRN ×2 (15:01→20:40)
[2020-04-09] MEDS: CMCS:FluvoxaMINE 50 mg TAB (NF) PO SCH (20:43)
[2020-04-10] MEDS: fentaNYL 100 mcg/2 ml 50 MCG/ML VIAL IV SLOW PU PRN (03:46)
[2020-04-10 05:35] LABS: ABS Eosinophils 0.1 10^3/ul (0-0.6); ABS Lymphocytes 1.1 10^3/ul (1.0-4.8); ABS Monocytes 0.8 10^3/ul (0-0.8); ABS Neutrophils 5.2 10^3/ul (1.5-7.7); Eosinophil % 2.1 %; Hematocrit 37 % (42-52); Lymphocyte % 15.4 %; Mean Corpuscular HGB Conc 32 g/dL (31-36); Mean Corpuscular Hemoglobin 26 pg (27-31); Mean Corpuscular Volume 80 fL (80-94); Mean Platelet Volume 7.3 fL (7.4-10.4); Platelet Count 205 10^3/uL (150-450); Red Blood Count 4.67 10^6 /uL (4.18-5.48); Red Cell Distribution Width 16 % (10-15); White Blood Count 7.3 10^3/uL (3.5-10.8)
[2020-04-10] MEDS ORDERED: Buffered Lidocaine 1% SYRIN 1 ml INTRADERM ONE (06:00)
[2020-04-10 06:34] LABS: Potassium 4.5 mmol/L (3.5-5.0)
[2020-04-10 06:40] LABS: BUN/Creatinine Ratio 10.5 (8-20); EGFR African American 90.5 (>60); EGFR Non-African American 74.8 (>60)
[2020-04-10] MEDS: Lactated Ringers 1000 ml BAG 1,000 ML IV SCH ×2 (07:00→13:42)
[2020-04-10] MEDS: Pantoprazole VIAL 40 MG VIAL IV SCH ×2 (07:50→21:33)
[2020-04-10] MEDS ORDERED: Insulin GLARGINE 100 un/ml 10 ml VIAL SUBCUT ONE (10:53)
[2020-04-10] MEDS: Insulin GLARGINE 100 un/ml 10 ml VIAL SUBCUT SCH (13:18)
[2020-04-10] MEDS ORDERED: Dexmedetomidine 200 mcg/2 ml 2 ml VIAL (200 mcg) ONE (13:20)
[2020-04-10] MEDS ORDERED: Midazolam 5 mg/5 ml VIAL 1 mg/ml 5 ml VIAL (5 mg) ONE (14:11)
[2020-04-10] MEDS ORDERED: Phenylephrine 40 mcg/mL 10mL (400mcg) SYRINGE ONE (14:35)
[2020-04-10] MEDS: NS 0.9% 1000 ml BAG 1,000 ML IV SCH (18:24)
[2020-04-10] MEDS: CMCS:FluvoxaMINE 50 mg TAB (NF) PO SCH (21:32)
[2020-04-11] MEDS ORDERED: Dextrose 50% Syringe 50 ml 25 GM/50 ML SYRINGE IV PUSH PRN (00:31)
[2020-04-11] MEDS: NS 0.9% 1000 ml BAG 1,000 ML IV SCH (04:02)
[2020-04-11 07:33] VITALS: BP 115/59
[2020-04-11] MEDS: Pantoprazole VIAL 40 MG VIAL IV SCH (07:51)
[2020-04-11] MEDS ORDERED: Insulin GLARGINE 100 un/ml 10 ml VIAL SUBCUT SCH (09:00)
== END 2020-04-11 10:18 | disposition home or self-care (01) | DRG 392 ==
LOC: MED 13:11 → ED 13:11
PROVIDERS: ADMIT Pediatrics; ATTEND Internal Medicine
PROC: O.GIEGD (2020-04-10 14:40)

== ENCOUNTER 2020-04-18 12:57 | Inpatient (IN) ==
[2020-04-18] MEDS ORDERED: NS 0.9% 1000 ml BAG 1,000 ML IV ONE ×2 (13:20→17:52)
[2020-04-18 14:32] LABS: Albumin 3.7 g/dL (3.2-5.2); Calcium 8.9 mg/dL (8.6-10.3); Potassium 4.5 mmol/L (3.5-5.0); Total Bilirubin 0.6 mg/dL (0.2-1.0)
[2020-04-18 14:38] LABS: Albumin/Globulin Ratio 1.2 (1-3); BUN/Creatinine Ratio 16.3 (8-20); C Reactive Protein 12.01 mg/L (<8.01); EGFR African American 71.3 (>60); Globulin 3.2 g/dL (2-4); Total Protein 6.9 g/dL (6.4-8.9)
[2020-04-18 15:19] LABS: ABS Eosinophils 0.2 10^3/ul (0-0.6); ABS Lymphocytes 1.3 10^3/ul (1.0-4.8); ABS Monocytes 1.1 10^3/ul (0-0.8); ABS Neutrophils 5.2 10^3/ul (1.5-7.7); Eosinophil % 1.9 %; Hematocrit 38 % (42-52); Hemoglobin 12.3 g/dL (14.0-18.0); Lymphocyte % 17.1 %; Mean Corpuscular HGB Conc 33 g/dL (31-36); Mean Corpuscular Hemoglobin 26 pg (27-31); Mean Corpuscular Volume 79 fL (80-94); Mean Platelet Volume 7.1 fL (7.4-10.4); Platelet Count 218 10^3/uL (150-450); Red Blood Count 4.78 10^6 /uL (4.18-5.48); Red Cell Distribution Width 16 % (10-15); White Blood Count 7.9 10^3/uL (3.5-10.8)
[2020-04-18] MEDS ORDERED: Morphine 4 MG/ML VIAL (1 ml) IV ONE (17:52)
[2020-04-18] MEDS ORDERED: Ondansetron 4 mg VIAL 2 MG/ML 2 ml VIAL IV ONE (17:52)
[2020-04-18] MEDS ORDERED: Al Hydrox/Mg Hydrox/Simet LIQ 30 ML UDC PO ONE (17:54)
[2020-04-18] MEDS ORDERED: Al Hydrox/Mg Hydrox/Simet LIQ 30 ML UDC PO PRN (18:18)
[2020-04-18] MEDS ORDERED: Dextrose 50% Syringe 50 ml 25 GM/50 ML SYRINGE IV PUSH PRN (18:35)
[2020-04-18] MEDS ORDERED: Pantoprazole VIAL 40 MG VIAL IV SCH (18:45)
[2020-04-18] MEDS ORDERED: Naltrexone INJ 380 MG IM SCH (19:00)
[2020-04-18] MEDS ORDERED: fentaNYL 100 mcg/2 ml 50 MCG/ML VIAL IV SLOW PU ONE (21:41)
[2020-04-18] MEDS: CMCS: FluvoxaMINE 50 mg TAB (NF) PO SCH (22:15)
[2020-04-18] MEDS: Pantoprazole VIAL 40 MG VIAL IV SCH (22:24)
[2020-04-19] MEDS: Morphine 2 MG/ML SYRINGE IV PRN ×4 (02:14→20:03)
[2020-04-19] MEDS: NS 0.9% 1000 ml BAG 1,000 ML IV SCH ×3 (04:16→19:57)
[2020-04-19 05:52] LABS: ABS Eosinophils 0.2 10^3/ul (0-0.6); ABS Lymphocytes 1.4 10^3/ul (1.0-4.8); ABS Monocytes 0.7 10^3/ul (0-0.8); ABS Neutrophils 4.1 10^3/ul (1.5-7.7); Eosinophil % 2.5 %; Hematocrit 35 % (42-52); Hemoglobin 11.5 g/dL (14.0-18.0); Lymphocyte % 22.1 %; Mean Corpuscular HGB Conc 33 g/dL (31-36); Mean Corpuscular Hemoglobin 26 pg (27-31); Mean Corpuscular Volume 79 fL (80-94); Platelet Count 221 10^3/uL (150-450); Red Blood Count 4.47 10^6 /uL (4.18-5.48); Red Cell Distribution Width 16 % (10-15); White Blood Count 6.4 10^3/uL (3.5-10.8)
[2020-04-19 06:08] LABS: Albumin 3.2 g/dL (3.2-5.2); Albumin/Globulin Ratio 1.2 (1-3); BUN/Creatinine Ratio 14.2 (8-20); C Reactive Protein 9.94 mg/L (<8.01); EGFR African American 89.5 (>60); Globulin 2.7 g/dL (2-4); Total Bilirubin 0.5 mg/dL (0.2-1.0); Total Protein 5.9 g/dL (6.4-8.9)
[2020-04-19] MEDS: Insulin GLARGINE 100 un/ml 10 ml VIAL SUBCUT SCH (08:09)
[2020-04-19] MEDS: Pantoprazole VIAL 40 MG VIAL IV SCH ×2 (08:09→20:14)
[2020-04-19] MEDS ORDERED: Insulin GLARGINE 100 un/ml 10 ml VIAL SUBCUT SCH (09:00)
[2020-04-19 09:15] LABS: Urine Appearance Clear; Urine Bilirubin Negative (Negative); Urine Blood Negative (Negative); Urine Color Straw; Urine Glucose Negative (Negative); Urine Ketones Negative (Negative); Urine Nitrite Negative (Negative); Urine Protein Negative (Negative); Urine Specific Gravity 1.005 (1.010-1.030); Urine Urobilinogen Negative (Negative)
[2020-04-19] MEDS ORDERED: PEG 3000 GI LAVAGE 1 GALLON PO ONE (16:00)
[2020-04-19] MEDS: CMCS: FluvoxaMINE 50 mg TAB (NF) PO SCH (20:15)
[2020-04-20] MEDS: NS 0.9% 1000 ml BAG 1,000 ML IV SCH ×2 (02:21→09:23)
[2020-04-20] MEDS: Morphine 2 MG/ML SYRINGE IV PRN ×5 (05:24→23:28)
[2020-04-20] MEDS ORDERED: PEG 3000 GI LAVAGE 1 GALLON PO ONE (06:00)
[2020-04-20] MEDS: Pantoprazole VIAL 40 MG VIAL IV SCH ×2 (08:10→19:24)
[2020-04-20] MEDS: Insulin GLARGINE 100 un/ml 10 ml VIAL SUBCUT SCH (08:11)
[2020-04-20] MEDS ORDERED: Midazolam 2 mg/2 ml VIAL 1 mg/ml 2 ml VIAL (2 mg) ONE (14:27)
[2020-04-20] MEDS ORDERED: fentaNYL 100 mcg/2 ml 50 MCG/ML VIAL ONE (14:27)
[2020-04-20] MEDS ORDERED: Ketamine HCL 50 mg/ml 10 ml VIAL (500 MG) ONE (14:28)
[2020-04-20] MEDS ORDERED: Glycopyrrolate IV 0.2 MG/ML 1 ML VIAL ONE (15:35)
[2020-04-20] MEDS ORDERED: Lidocaine 2% PF 5 ML VIAL ONE (15:35)
[2020-04-20] MEDS ORDERED: Propofol 10 MG/ML 20 ML BTL ONE (15:35)
[2020-04-20] MEDS ORDERED: fentaNYL 100 mcg/2 ml 50 MCG/ML VIAL IV PRN (16:09)
[2020-04-20] MEDS ORDERED: Naloxone 0.4 mg VIAL 0.4 mg/ml 1 ml VIAL IV PRN (16:09)
[2020-04-20] MEDS ORDERED: HYDROcodone/ACETAMIN 5/325 mg TAB PO PRN (16:09)
[2020-04-20 17:20] LABS: Hematocrit 38 % (42-52); Hemoglobin 12.3 g/dL (14.0-18.0); Mean Corpuscular HGB Conc 33 g/dL (31-36); Mean Corpuscular Hemoglobin 26 pg (27-31); Mean Corpuscular Volume 80 fL (80-94); Mean Platelet Volume 7.5 fL (7.4-10.4); Platelet Count 224 10^3/uL (150-450); Red Blood Count 4.74 10^6 /uL (4.18-5.48); Red Cell Distribution Width 16 % (10-15); White Blood Count 8.7 10^3/uL (3.5-10.8)
[2020-04-20] MEDS: CMCS: FluvoxaMINE 50 mg TAB (NF) PO SCH (21:58)
[2020-04-21] MEDS: Morphine 2 MG/ML SYRINGE IV PRN ×2 (03:51→09:11)
[2020-04-21] MEDS: Insulin GLARGINE 100 un/ml 10 ml VIAL SUBCUT SCH (09:11)
[2020-04-21] MEDS: Pantoprazole VIAL 40 MG VIAL IV SCH (09:11)
[2020-04-21 15:53] VITALS: BP 112/63
== END 2020-04-21 16:36 | disposition home or self-care (01) | DRG 394 ==
LOC: ED 12:57 → MEDTELE 12:57
PROVIDERS: ADMIT Internal Medicine; ATTEND Internal Medicine